=== PATIENT | male | born 1990 | race Two or more races ===

== ENCOUNTER 2022-09-14 11:41 | Inpatient (IN) | payer SELFPAY ==
[~2022-09-14] VITALS: Ht 175.3 cm; Wt 79.0 kg
[2022-09-14 12:28] LABS: Basophils # (auto) 0.1 10 ^3/uL (0-0.2); Basophils % (auto) 0.9 % (0.0-2.0); Eosinophils # (auto) 0.2 10 ^3/uL (0-0.8); Eosinophils % (auto) 1.8 % (0.0-7.0); Hemoglobin 16.2 g/dL (13.5-17.5); Lymphocytes # (auto) 2.6 10 ^3/uL (0.4-5.4); Lymphocytes % (auto) 29.4 % (10.0-50.0); Mean Corpuscular Hemoglobin 31.5 pg (28.0-32.0); Mean Corpuscular Hgb Conc. 33.7 g/dL (32.0-36.0); Mean Corpuscular Volume 93.5 fL (80.0-100.0); Monocytes # (auto) 0.8 10 ^3/uL (0-1.3); Monocytes % (auto) 8.6 % (0.0-12.0); Neutrophils # (auto) 5.2 10 ^3/uL (1.6-8.6); Neutrophils % (auto) 59.3 % (37.0-80.0); Nucleated Red Blood Cells % 0.3 %; Red Blood Cells 5.14 10^6/uL (4.5-5.90); White Blood Cell 8.8 10^3/uL (4.4-10.8)
[2022-09-14 12:46] LABS: Albumin 4.3 g/dL (3.4-5.0); Calcium 9.3 mg/dL (8.5-10.1); Potassium 3.1 mmol/L (3.5-5.1)
[2022-09-14 12:51] LABS: BUN/Creatinine Ratio 12.6 (10.0-20.0); Bilirubin, Total 0.6 mg/dL (0.2-1.0); Total Protein 8.6 g/dL (6.4-8.2)
[2022-09-14 13:11] LABS: Urine Bacteria NONE SEEN /hpf (None Seen); Urine Blood Negative /uL (Negative); Urine Budding Yeast MODERATE /hpf (None Seen); Urine Specific Gravity 1.022 (1.001-1.035); Urine WBC 1 /hpf (0 - 3)
[2022-09-14] MEDS ORDERED: MORPHINE SULFATE INJ 2 MG/ml SYRG IV ONE (13:30)
[2022-09-14] MEDS ORDERED: LACTATED RINGER'S 1,000 ML IV ONE (13:30)
[2022-09-14] MEDS ORDERED: cefTRIAXone 1GM/50ML D5W 50 ML IV ONE (14:15)
[2022-09-14] MEDS ORDERED: metroNIDAZOLE 500MG/100ML 100 ML IV ONE (14:15)
[2022-09-14] MEDS ORDERED: HYDROcodone-ACET 5/325MG TAB PO PRN (15:15)
[2022-09-14] MEDS ORDERED: LACTATED RINGER'S 1,000 ML IV SCH (15:15)
[2022-09-14] MEDS ORDERED: ACETAMINOPHEN 325 MG TAB PO PRN (15:15)
[2022-09-14] MEDS ORDERED: POTASSIUM CHL 20MEQ/100ML 100 ML IV SCH (15:15)
[2022-09-14] MEDS ORDERED: ONDANSETRON HCL 4 MG/2 ML VIAL IV PRN (15:15)
[2022-09-14] MEDS ORDERED: MORPHINE SULFATE INJ 2 MG/ml SYRG IV PRN (15:15)
[2022-09-14] MEDS ORDERED: PANTOPRAZOLE 40 MG/10 ML VIAL INJ IV ONE (15:30)
[2022-09-14 16:10] LABS: Amphetamine Screen, Urine NEGATIVE (NEGATIVE); Barbiturate Scree,Urine NEGATIVE (NEGATIVE); Benzodiazephine Screen, Urine NEGATIVE (NEGATIVE); Cannabinoid Screen, Urine POSITIVE (NEGATIVE)
[2022-09-14 16:12] LABS: Cholesterol 192 mg/dL (< 200); HDL Cholesterol 40 mg/dL (40-59); LDL Cholesterol 119 mg/dL (< 100); Triglycerides 205 mg/dL (< 150)
[2022-09-14 16:17] LABS: Cocaine Screen, Urine NEGATIVE (NEGATIVE); Opiate Scree,Urine NEGATIVE (NEGATIVE); Phencyclidine Screen, Urine NEGATIVE (NEGATIVE)
[2022-09-14 16:50] LABS: INR 0.95 (0.9-1.15); Partial Thromboplastin Time 27.8 sec (24.6-33.4)
[2022-09-14 17:58] VITALS: BP 148/86
[2022-09-14] MEDS ORDERED: metroNIDAZOLE 500MG/100ML 100 ML IV SCH (22:00)
[2022-09-15] MEDS ORDERED: cefTRIAXone 1GM/50ML D5W 50 ML IV SCH (09:00)
[2022-09-15] MEDS ORDERED: PANTOPRAZOLE 40 MG/10 ML VIAL INJ IV SCH (10:00)
== END 2022-09-15 01:27 | disposition left against medical advice (07) | DRG 444 ==
LOC: ER 11:41 → OVERFLOW 15:16
PROVIDERS: ADMIT Registered Nurse; ATTEND Registered Nurse
DX: K81.0 Acute cholecystitis (principal); K85.10 Biliary acute pancreatitis without necrosis or infection; Z20.822 Contact with and (suspected) exposure to COVID-19
CPT/HCPCS: 36415; 76705; 80053; 80061; 80307; 81001; 82150; 83036; 83690; 85025; 85610; 85730; 87040; 87426; G0378

== ENCOUNTER 2023-06-25 23:03 | Emergency (ER) | payer SELFPAY ==
[~2023-06-25] VITALS: Ht 180.3 cm; Wt 77.2 kg
[2023-06-25 23:10] VITALS: BP 152/83; PULSE 116; RESP 16; TEMP 98.1; O2SAT 97
[2023-06-25] MEDS ORDERED: MUPI2OIN2 EX (23:57)
[2023-06-25] MEDS ORDERED: IBUP1TAB5 PO (23:57)
[2023-06-25] MEDS ORDERED: CEPH500C PO (23:57)
[2023-06-26] MEDS ORDERED: NEOMYCIN-BACITRACIN-POLYM UNITDOSE PKG TOP OINT TOP ONE
[2023-06-26] MEDS ORDERED: IBUPROFEN 600 MG TAB PO ONE
[2023-06-26] MEDS: TETANUS-DIPTH-ACEL PERTUSSIS 0.5ML SYR Tdap IM ONE ×2 (00:17→00:29)
== END 2023-06-26 00:29 | disposition home or self-care (01) ==
LOC: ER 23:03
DX: S61.211A Laceration without foreign body of left index finger without damage to nail, initial encounter (principal); F15.90 Other stimulant use, unspecified, uncomplicated; Z79.899 Other long term (current) drug therapy; W26.0XXA Contact with knife, initial encounter; Y93.89 Activity, other specified; Y92.89 Other specified places as the place of occurrence of the external cause; Y99.8 Other external cause status
CPT/HCPCS: 12002; 90715